=== PATIENT | female | born 1985 ===

== ENCOUNTER 2024-08-07 06:00 | Day surgery (SDC) | payer OTHER ==
[2024-07-30 13:00] VITALS: BP 116/80
[~2024-08-07] VITALS: Ht 152.4 cm; Wt 71.7 kg
[~2024-08-07 06:00] MED LIST: ACID REDUCER20 M1 PO
[2024-08-07] MEDS ORDERED: LIDOCAINE HCL 1% 10ML VIAL ONE (12:17)
[2024-08-07] MEDS ORDERED: LIDOCAINE HCL 1%/EPINEPHRINE 20ML VIAL IJ ONE (12:17)
[2024-08-07] MEDS ORDERED: CEFAZOLIN SODIUM 1,000 MG VIAL ONE (12:17)
== END 2024-08-07 15:00 | disposition home or self-care (01) ==
LOC: CIR.AMB 06:00
PROVIDERS: ATTEND Surgery
DX: D21.6 Benign neoplasm of connective and other soft tissue of trunk, unspecified (principal); Z91.013 Allergy to seafood